=== PATIENT | male | born 1995 | race Caucasian/White ===

== ENCOUNTER 2018-11-30 23:25 | Emergency (ER) | payer OTHER ==
--- NOTE | 2018-12-01 00:36 | ED ---
Syncope/Near Syncope - HPI Summary HPI Summary: Patient complains of witnessed syncopal episode lasting a couple minutes with fall and subsequent epistaxis, laceration to upper lip, chipped upper front tooth. Patient states he was in a squatting position, when he stood up and just passed out. Patient states he has history of lightheadedness when standing up from sitting position, but has never passed out from this before. Does admit to several drinks of alcohol over the course of the day, without drinking much water. Denies any other pain, injury or symptoms. Denies medical history. - History Of Current Complaint Chief Complaint: EDSyncope Time Seen by Provider: 12/01/18 00:05 Hx Obtained From: Patient Onset/Duration: Sudden Onset, Lasting Minutes Context: Witnessed, Loss Of Consciousness Activity At Onset: Exertion Associated Head Trauma: Yes Aggravating Factor(s): Position Change Alleviating Factor(s): Spontaneous Resolution Associated Signs And Symptoms: Negative - Allergies/Home Medications Allergies/Adverse Reactions: Allergies Allergy/AdvReac Type Severity Reaction Status Date / Time No Known Allergies Allergy Verified 11/30/18 23:35 PMH/Surg Hx/FS Hx/Imm Hx Endocrine/Hematology History: Denies: Hx Anticoagulant Therapy Cardiovascular History: Denies: Hx Pacemaker/ICD History: Denies: Hx Dialysis Sensory History: Denies: Hx Legally Blind Opthamlomology History: Denies: Hx Eye Prosthesis EENT History: Denies: Hx Deafness Neurological History: Denies: Hx Dementia - Immunization History Immunizations Up to Date: Yes Infectious Disease History: No Infectious Disease History: Denies: Traveled Outside the [place] in Last 30 Days - Family History Known Family History: Positive: Non-Contributory - Social History Alcohol Use: Occasionally Substance Use Type: Reports: Marijuana Smoking Status (MU): Never Smoked Tobacco Review of Systems Constitutional: Negative Eyes: Negative Positive: Dental Pain Cardiovascular: Negative Respiratory: Negative Gastrointestinal: Negative Genitourinary: Negative Musculoskeletal: Negative Skin: Other Neurological: Negative Psychological: Normal All Other Systems Reviewed And Are Negative: Yes Physical Exam - Summary Physical Exam Summary: Neuro exam normal. Chipped right upper front tooth. Laceration to upper lip extending exteriorly into space between lip and nose, and extending interiorly to base of gums. Teeth are not loose. Some abrasion of gum tissue between teeth and upper lip tissue. No septal hematoma bilaterally. No other trauma noted to mouth, face, head. Full range of motion of neck and jaw. Patient moves all 4 extremities freely without indication of pain. No pain with palpation of neck, back, abdomen, chest. Triage Information Reviewed: Yes Vital Signs On Initial Exam: Initial Vitals Temp Pulse Resp BP Pulse Ox 99.7 F 106 20 151/86 99 11/30/18 23:27 11/30/18 23:27 11/30/18 23:27 11/30/18 23:27 11/30/18 23:27 Vital Signs Reviewed: Yes Appearance: Positive: Well-Appearing Skin: Positive: Warm Head/Face: Positive: Normal Head/Face Inspection Eyes: Positive: Normal ENT: Positive: Normal ENT inspection Dental: Positive: Dental Fracture @. Negative: Bleeding Neck: Positive: Supple Respiratory/Lung Sounds: Positive: Clear to Auscultation Cardiovascular: Positive: Normal Abdomen Description: Positive: Nontender Musculoskeletal: Positive: Normal Neurological: Positive: Normal Psychiatric: Positive: Normal AVPU Assessment: Alert - Mile Coma Scale Best Eye Response: 4 - Spontaneous Best Motor Response: 6 - Obeys Commands Best Verbal Response: 5 - Oriented Coma Scale Total: 15 Procedures - Laceration/Wound Repair 1 Location: face, mouth Description: Linear Anesthesia: Local, 1.0% Length, Depth and Shape: 4cm x 1cm Betadine Prep?: No - chlorhexidine Irrigated w/ Saline (ccs): 400 Laceration/Wound Explored: clean Debridement: minimal Number of Sutures: 14 - one suture of 6. 0 Ethilon. 13 sutures of 6. 0 Vicryl. Layer Closure?: No Sterile Dressing Applied?: No Diagnostics - Vital Signs Vital Signs Temp Pulse Resp BP Pulse Ox 11/30/18 23:27 99.7 F 106 20 151/86 99 - Laboratory Result Diagrams: 12/01/18 00:39 12/01/18 00:40 Lab Statement: Any lab studies that have been ordered have been reviewed, and results considered in the medical decision making process. Course/Dx Course Of Treatment: Patient complains of witnessed syncopal episode lasting a couple minutes with fall and subsequent epistaxis, laceration to upper lip, chipped upper front tooth. Patient states he was in a squatting position, when he stood up and just passed out. Patient states he has history of lightheadedness when standing up from sitting position, but has never passed out from this before. Does admit to several drinks of alcohol over the course of the day, without drinking much water. Denies any other pain, injury or symptoms. Denies medical history. Vital signs within normal limits. Labs unremarkable. Lip laceration cleaned and sutured. Advised patient follow up with dentist. Patient is from [place], returning there tomorrow, will follow-up with dentist there. - Diagnoses Provider Diagnoses: Laceration, Chipped tooth, Epistaxis, Fall, Syncope Discharge ED - Sign-Out/Discharge Documenting (check all that apply): Patient Departure Patient Received Moderate/Deep Sedation with Procedure: No - Discharge Plan Condition: Stable Disposition: HOME Prescriptions: Amoxicillin/Clavulanate TAB* [Augmentin TAB 875*] 875 mg PO BID #20 tab Patient Education Materials: Care For Your Absorbable Stitches (ED), Facial Laceration (ED) Referrals: No Primary Care Phys,NOPCP [Primary Care Provider] - Additional Instructions: There is one suture of black color above your lip that needs to be removed in 5 days. All other sutures are absorbable. Take antibiotics as directed. Follow up with your dentist and with ENT for further evaluation of trauma to teeth and gums. - Billing Disposition and Condition Condition: STABLE Disposition: Home
[2018-12-01 00:47] LABS: ABS Eosinophils 0.1 10^3/ul (0-0.6); ABS Lymphocytes 1.1 10^3/ul (1.0-4.8); ABS Monocytes 1.1 10^3/ul (0-0.8); ABS Neutrophils 8.3 10^3/ul (1.5-7.7); Eosinophil % 0.6 %; Hematocrit 44 % (42-52); Hemoglobin 15.1 g/dL (14.0-18.0); Lymphocyte % 10.7 %; Mean Corpuscular HGB Conc 35 g/dL (31-36); Mean Corpuscular Hemoglobin 30 pg (27-31); Mean Corpuscular Volume 85 fL (80-94); Mean Platelet Volume 5.9 fL (7.4-10.4); Platelet Count 302 10^3/uL (150-450); Red Blood Count 5.12 10^6 /uL (4.18-5.48); Red Cell Distribution Width 13 % (10-15); White Blood Count 10.6 10^3/uL (3.5-10.8)
[2018-12-01 01:07] LABS: ALT 20 U/L (7-52); AST 16 U/L (13-39); Albumin/Globulin Ratio 1.9 (1-3); Alkaline Phosphatase 77 U/L (34-104); Anion Gap 6 mmol/L (2-11); BUN/Creatinine Ratio 10.7 (8-20); Blood Urea Nitrogen 12 mg/dL (6-24); C Reactive Protein 1.11 mg/L (<8.01); CO2 Carbon Dioxide 30 mmol/L (22-32); Calcium 10.2 mg/dL (8.6-10.3); Chloride 104 mmol/L (101-111); EGFR African American 98.3 (>60); EGFR Non-African American 81.2 (>60); Globulin 2.7 g/dL (2-4); Glucose 120 mg/dL (70-100); Potassium 3.8 mmol/L (3.5-5.0); Sodium 140 mmol/L (135-145); Total Protein 7.7 g/dL (6.4-8.9)
[2018-12-01 01:09] LABS: Alcohol < 10 mg/dL (<10)
[2018-12-01] MEDS ORDERED: Amoxicillin/Clavulanate TAB* 875 MG PO ONE (01:51)
[2018-12-01] MEDS ORDERED: Ibuprofen TAB* 600 MG ONE (02:06)
[2018-12-01] MEDS ORDERED: Ibuprofen TAB* 600 MG PO ONE (02:06)
[2018-12-01] MEDS ORDERED: Lidocaine 1% MPF ** 5 ML VIAL INJ ONE (02:10)
[2018-12-01 03:38] VITALS: BP 139/87
== END 2018-12-01 03:37 | disposition home or self-care (01) ==
LOC: ED 23:25
DX: S01.81XA Laceration without foreign body of other part of head, initial encounter (principal); R55 Syncope and collapse; K03.81 Cracked tooth; W19.XXXA Unspecified fall, initial encounter; Y92.9 Unspecified place or not applicable; R04.0 Epistaxis; R42 Dizziness and giddiness
CPT/HCPCS: 12002; 36415; 80053; 80320; 85025; 86140; 93005; 99283; A9270-GY; G0480